=== PATIENT | female | born 1995 | race Caucasian/White ===

== ENCOUNTER 2018-12-06 15:35 | Emergency (ER) | payer SELFPAY ==
[~2018-12-06] VITALS: Ht 162.6 cm; Wt 68.0 kg
--- NOTE | 2018-12-06 16:16 | ED GU-Female ---
General Chief Complaint: - Urinary Stated Complaint: CRAMPING AND BLEEDING Source: patient Exam Limitations: no limitations History of Present Illness Date Seen by Provider: December 06, 2018 Time Seen by Provider: 16:08 Initial Comments 22-year-old LMP approximately 3 months ago presents with vaginal spotting and lower pelvic cramping today. No dysuria or frequency. She has not passed any clots. She states she's had a positive urine test but has had no reevaluation. She has unknown blood type. She does not recall getting RhoGAM with her last which was a miscarriage but states that she might have an is not aware. No other medical problems reported. Allergies and Home Medications Patient Home Medication List Home Medication List Reviewed: Yes Review of Systems Review of Systems Constitutional: no symptoms reported EENTM: no symptoms reported; No blurred vision, No double vision, No throat pain Respiratory: no symptoms reported; No short of breath, No stridor Cardiovascular: no symptoms reported; No edema, No palpitations, No syncope Gastrointestinal: see HPI; No diarrhea, No nausea Genitourinary: see HPI; denies burning, denies discharge, denies frequency, denies flank pain, denies incontinence; pain : No Musculoskeletal: no symptoms reported Skin: see HPI Psychiatric/Neurological: No Symptoms Reported, See HPI; Denies Paresthesia, Denies Seizure, Denies Tingling Endocrine: See HPI; Denies Excessive Sweating, Denies Flushing, Denies Increased Urine, Denies Other Hematologic/Lymphatic: Denies Other Past Zdsnlpd-Rzflay-Bsskaq Hx Past Med/Social Hx: Reviewed Nursing Past Med/Soc Hx Patient Social History Recent Foreign Travel: No Contact w/Someone Who Travel: No Physical Exam Vital Signs Vital Signs - First Documented 12/06/18 16:17 Temp 98.4 Pulse 91 Resp 20 B/P (MAP) 104/57 (73) Pulse Ox 99 O2 Delivery Room Air Capillary Refill : Height, Weight, BMI Height: '" Weight: lbs. oz. kg; BMI Method: General Appearance: WD/WN, no apparent distress HEENT: PERRL/EOMI, normal ENT inspection, TMs normal, pharynx normal Neck: non-tender, full range of motion, supple, normal inspection Cardiovascular: normal peripheral pulses, regular rate, rhythm, no edema, no gallop, no JVD, no murmur Respiratory: chest non-tender, lungs clear, normal breath sounds, no respiratory distress, no accessory muscle use, respiratory distress Gastrointestinal: normal bowel sounds, non tender, soft, no organomegaly, no pulsatile mass, tenderness (suprapubic region) Back: normal inspection, no CVA tenderness, no vertebral tenderness Extremities: normal range of motion, non-tender, normal inspection, no pedal edema 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, no motor/sensory deficits, alert, normal mood/affect, oriented x 3 Skin: normal color, warm/dry, pallor Lymphatic: no adenopathy Progress/Results/Core Measures Suspected Sepsis SIRS Temperature: Pulse: Respiratory Rate: Laboratory Tests 12/06/18 16:22: White Blood Count 11.8H Blood Pressure / Mean: Laboratory Tests 12/06/18 16:22: Platelet Count 255 Results/Orders Lab Results Laboratory Tests Test 12/06/18 15:58 12/06/18 16:22 Range/Units Urine Color YELLOW Urine Clarity CLEAR Urine pH 7.0 5-9 Urine Specific [place] 1.015 L 1.016-1.022 Urine Protein NEGATIVE NEGATIVE Urine Glucose (UA) NEGATIVE NEGATIVE Urine Ketones NEGATIVE NEGATIVE Urine Nitrite NEGATIVE NEGATIVE Urine Bilirubin NEGATIVE NEGATIVE Urine Urobilinogen 0.2 NORMAL MG/DL Urine Leukocyte Esterase NEGATIVE NEGATIVE Urine RBC (Auto) NEGATIVE NEGATIVE Urine RBC NONE /HPF Urine WBC NONE /HPF Urine Squamous Epithelial Cells 10-25 H /HPF Urine Crystals NONE /LPF Urine Bacteria NONE /HPF Urine Casts NONE /LPF Urine Mucus NEGATIVE /LPF Urine Culture Indicated NO Urine Test POSITIVE NEGATIVE White Blood Count 11.8 H 4.3-11.0 10^3/uL Red Blood Count 3.88 L 4.35-5.85 10^6/uL Hemoglobin 11.6 11.5-16.0 G/DL Hematocrit 34 L 35-52 % Mean Corpuscular Volume 86 80-99 FL Mean Corpuscular Hemoglobin 30 25-34 PG Mean Corpuscular Hemoglobin Concent 35 32-36 G/DL Red Cell Distribution Width 13.2 10.0-14.5 % Platelet Count 255 130-400 10^3/uL Mean Platelet Volume 10.1 7.4-10.4 FL Neutrophils (%) (Auto) 72 42-75 % Lymphocytes (%) (Auto) 21 12-44 % Monocytes (%) (Auto) 5 0-12 % Eosinophils (%) (Auto) 2 0-10 % Basophils (%) (Auto) 0 0-10 % Neutrophils # (Auto) 8.5 H 1.8-7.8 X 10^3 Lymphocytes # (Auto) 2.5 1.0-4.0 X 10^3 Monocytes # (Auto) 0.6 0.0-1.0 X 10^3 Eosinophils # (Auto) 0.2 0.0-0.3 10^3/uL Basophils # (Auto) 0.0 0.0-0.1 10^3/uL My Orders Orders - MICHAELA TELLEZ MD Cbc With Automated Diff (12/06/18 16:12) Comprehensive Metabolic Panel (12/06/18 16:12) Hcg,Qualitative Urine (12/06/18 16:12) Hcg,Quantitative (12/06/18 16:12) Ua Culture If Indicated (12/06/18 16:12) Abo Rh Type (12/06/18 16:12) Us Ob Single Fetus<14 [id number] (12/06/18 16:12) Vital Signs/I&O 12/06/18 16:17 Temp 98.4 Pulse 91 Resp 20 B/P (MAP) 104/57 (73) Pulse Ox 99 O2 Delivery Room Air Capillary Refill : Progress Note : Time: 17:38 Progress Note Unable to obtain ABO testing. Patient agrees to follow up with her primary care for results which will be sent to reference lab in the morning. She understands the importance of following through with this. 1740 discussed findings with her. She agrees to follow up with her OB tomorrow for Rh testing results. Recommended pelvic rest and close follow-up. Diagnostic Imaging Diagonstic Imaging: Ultrasound Comments NAME: DIANNE GONSALES [facility] REC#: [id number] PT STATUS: REG ER : 1995 PHYSICIAN: MICHAELA TELLEZ MD ADMIT DATE: 12/06/18/ER FS Draft Date of Exam:12/06/18 US OB SINGLE FETUS<14 [id number] PROCEDURE: US OB SINGLE FETUS <14 WKS. TECHNIQUE: Multiple real-time grayscale images were obtained over the gravid uterus in various projections. INDICATION: Cramping. FINDINGS: Obstetrical ultrasonography reveals iglesias intrauterine gestation with anterior placenta. There is no evidence of previa. There is cardiac activity present with a rate of 155 beats per minute. No anomalies identified however intracranial structures are not well visualized which may be due to incomplete bladder distention. biometry indicates gestational age of 16 weeks and 1 day. There has been no maternal adnexal region abnormality. IMPRESSION: 1. Estimated gestational age of 16 weeks and 6 days. Sonographic EDC is 05/17/2019. 2. Complete anatomic survey could be performed later in the second trimester. Otherwise, no acute abnormality is identified. Dictated on workstation # [id number] Dict: 12/06/18 1720 Trans: 12/06/18 1726 [id number] Interpreted by: POLI JEFFERS MD Electronically signed by: Departure Impression Primary Impression: Normal IUP (intrauterine ) on ultrasound Qualified Codes: Z34.92 - Encounter for supervision of normal , unspecified, second trimester Additional Impressions: Abdominal cramping Noncompliance Disposition: 01 HOME, SELF-CARE Condition: Improved Departure-Patient Inst. Decision time for Depature: 17:42 Referrals: NO,LOCAL PHYSICIAN (PCP) Primary Care Physician Call tomorrow to follow up with your OB doctor and determine what follow-up they think necessary. Patient Instructions: Bleeding With (DC) Add. Discharge Instructions: Be sure to follow up with your OB doctor tomorrow for the results of the pending lab tests here. Contact them immediately if additional problems should occur. All discharge instructions reviewed with patient and/or family. Voiced understanding. MICHAELA TELLEZ MD December 06, 2018 16:16
--- NOTE | 2018-12-06 16:30 | NUR ---
Report was given to DB Shook. Care was transferred.
[2018-12-06 16:33] LABS: BASOPHILS % (AUTO) 0 % (0-10); EOSINOPHILS % (AUTO) 2 % (0-10); HEMATOCRIT 34 % (35-52); HEMOGLOBIN 11.6 G/DL (11.5-16.0); LYMPHOCYTES % (AUTO) 21 % (12-44); MEAN CORPUSCULAR HEMOGLOBIN 30 PG (25-34); MEAN CORPUSCULAR HGB CONC 35 G/DL (32-36); MEAN CORPUSCULAR VOLUME 86 FL (80-99); MEAN PLATELET VOLUME 10.1 FL (7.4-10.4); MONOCYTES % (AUTO) 5 % (0-12); NEUTROPHILS % (AUTO) 72 % (42-75); PLATELET COUNT 255 10^3/uL (130-400); RED CELL DISTRIBUTION WIDTH 13.2 % (10.0-14.5); WHITE BLOOD COUNT 11.8 10^3/uL (4.3-11.0)
[2018-12-06 16:34] LABS: EOSINOPHILS # (AUTO) 0.2 10^3/uL (0.0-0.3); LYMPHOCYTES # (AUTO) 2.5 X 10^3 (1.0-4.0); MONOCYTES # (AUTO) 0.6 X 10^3 (0.0-1.0); NEUTROPHILS # (AUTO) 8.5 X 10^3 (1.8-7.8)
[2018-12-06 16:37] LABS: CLARITY,URINE CLEAR; COLOR,URINE YELLOW; PROTEIN,URINE NEGATIVE (NEGATIVE)
[2018-12-06 16:38] LABS: BILIRUBIN,URINE NEGATIVE (NEGATIVE); GLUCOSE, URINE (UA) NEGATIVE (NEGATIVE); KETONES,URINE NEGATIVE (NEGATIVE); LEUKOCYTE ESTERASE ,URINE NEGATIVE (NEGATIVE); NITRITE,URINE NEGATIVE (NEGATIVE); UROBILINOGEN,URINE 0.2 MG/DL (NORMAL)
--- NOTE | 2018-12-06 17:27 | Diagnostic Imaging Report ---
PROCEDURE: US OB SINGLE FETUS <14 WKS. TECHNIQUE: Multiple real-time grayscale images were obtained over the gravid uterus in various projections. INDICATION: Cramping. FINDINGS: Obstetrical ultrasonography reveals iglesias intrauterine gestation with anterior placenta. There is no evidence of previa. There is cardiac activity present with a rate of 155 beats per minute. No anomalies identified however intracranial structures are not well visualized which may be due to incomplete bladder distention. biometry indicates gestational age of 16 weeks and 1 day. There has been no maternal adnexal region abnormality. IMPRESSION: 1. Estimated gestational age of 16 weeks and 6 days. Sonographic EDC is 05/17/2019. 2. Complete anatomic survey could be performed later in the second trimester. Otherwise, no acute abnormality is identified. Dictated by: Dictated on workstation # [id number]
[2018-12-06 17:38] LABS: CARBON DIOXIDE 22 MMOL/L (21-32); CHLORIDE 99 MMOL/L (98-107); POTASSIUM 3.8 MMOL/L (3.6-5.0); SODIUM 135 MMOL/L (135-145)
[2018-12-06 17:39] LABS: ALANINE AMINOTRANSFERASE 19 U/L (0-55); ALBUMIN 3.6 GM/DL (3.2-4.5); ALKALINE PHOSPHATASE 57 U/L (40-136); BILIRUBIN,TOTAL 0.3 MG/DL (0.1-1.0); BUN/CREATININE RATIO 16; CALCIUM 9.1 MG/DL (8.5-10.1); CREATININE SERUM 0.38 MG/DL (0.60-1.30); GFR ESTIMATED > 60; GLUCOSE 109 MG/DL (70-105); TOTAL PROTEIN 6.2 GM/DL (6.4-8.2)
[2018-12-06 17:56] VITALS: BP 98/49
--- NOTE | 2018-12-06 17:56 | NUR ---
Pt discharged from ER at this time and was told to follow up with OB tomorrow and get her RH ABO result.
== END 2018-12-06 17:56 | disposition home or self-care (01) ==
LOC: ER FS 15:38
DX: O26.892 Other specified pregnancy related conditions, second trimester (principal); R10.2 Pelvic and perineal pain; Z91.19 Patient's noncompliance with other medical treatment and regimen; Z3A.16 16 weeks gestation of pregnancy
CPT/HCPCS: 36415; 76801; 80053; 81000; 84702; 84703; 85025; 86900; 86901

== ENCOUNTER 2019-02-13 11:22 | Emergency (ER) | payer MEDICAID, OTHER ==
[~2019-02-13] VITALS: Ht 162.6 cm; Wt 72.6 kg
--- OUTSIDE RECORDS SUMMARY | 2019-02-13 11:29 | XMS REPORT | Continuity of Care Document ---
Author Organization Unknown Address Unknown Allergies There is no data. Medications There is no data. Problems Date Dx Coded Attending Type Code Diagnosis Diagnosed By 12/06/2018 MICHAELA TELLEZ MD Ot O26.892 [facility] RELATED CONDITIONS, SECOND 12/06/2018 MICHAELA TELLEZ MD, Ot R10.2 PELVIC AND PERINEAL PAIN 12/06/2018 MICHAELA TELLEZ MD, Ot Z3A.16 16 WEEKS GESTATION OF 12/06/2018 MICHAELA TELLEZ MD, Ot Z91.19 PATIENT'S NONCOMPLIANCE W [facility] MEDICAL TR 12/08/2018 MICHAELA TELLEZ MD, Ot O26.892 [facility] RELATED CONDITIONS, SECOND 12/08/2018 MICHAELA TELLEZ MD, Ot R10.2 PELVIC AND PERINEAL PAIN 12/08/2018 MICHAELA TELLEZ MD, Ot Z3A.16 16 WEEKS GESTATION OF 12/08/2018 MICHAELA TELLEZ MD, Ot Z91.19 PATIENT'S NONCOMPLIANCE W [facility] MEDICAL TR 12/08/2018 MICHAELA TELLEZ MD, Ot O26.892 [facility] RELATED CONDITIONS, SECOND 12/08/2018 MICHAELA TELLEZ MD Ot R10.2 PELVIC AND PERINEAL PAIN 12/08/2018 MICHAELA TELLEZ MD, Ot Z3A.16 16 WEEKS GESTATION OF 12/08/2018 MICHAELA TELLEZ MD, Ot Z91.19 PATIENT'S NONCOMPLIANCE W [facility] MEDICAL TR Procedures There is no data. Results Test Result Range Urine beta human chorionic gonadotropin (hCG) measurement - 12/06/18 15:58 Urine beta human chorionic gonadotropin (hCG) measurement POSITIVE NEGATIVE Complete urinalysis with reflex to culture - 12/06/18 15:58 Urine color determination YELLOW NRG Urine clarity determination CLEAR NRG Urine pH measurement by test strip 7.0 5-9 Specific gravity of urine by test strip 1.015 1.016-1.022 Urine protein assay by test strip, semi-quantitative NEGATIVE NEGATIVE Urine glucose detection by automated test strip NEGATIVE NEGATIVE Erythrocytes detection in urine sediment by light microscopy NEGATIVE NEGATIVE Urine ketones detection by automated test strip NEGATIVE NEGATIVE Urine nitrite detection by test strip NEGATIVE NEGATIVE Urine total bilirubin detection by test strip NEGATIVE NEGATIVE Urine urobilinogen measurement by automated test strip (mass/volume) 0.2 mg/dL NORMAL Urine leukocyte esterase detection by dipstick NEGATIVE NEGATIVE Automated urine sediment erythrocyte count by microscopy (number/high power field) NONE NRG Automated urine sediment leukocyte count by microscopy (number/high power field) NONE NRG Bacteria detection in urine sediment by light microscopy NONE NRG Squamous epithelial cells detection in urine sediment by light microscopy 10-25 NRG Crystals detection in urine sediment by light microscopy NONE NRG Casts detection in urine sediment by light microscopy NONE NRG Mucus detection in urine sediment by light microscopy NEGATIVE NRG Complete urinalysis with reflex to culture NO NRG Complete blood count (CBC) with automated white blood cell (WBC) differential - 12/06/18 16:22 Blood leukocytes automated count (number/volume) 11.8 10*3/uL 4.3-11.0 Blood erythrocytes automated count (number/volume) 3.88 10*6/uL 4.35-5.85 Venous blood hemoglobin measurement (mass/volume) 11.6 g/dL 11.5-16.0 Blood hematocrit (volume fraction) 34 % 35-52 Automated erythrocyte mean corpuscular volume 86 [foz_us] 80-99 Automated erythrocyte mean corpuscular hemoglobin (mass per erythrocyte) 30 pg 25-34 Automated erythrocyte mean corpuscular hemoglobin concentration measurement (mass/volume) 35 g/dL 32-36 Automated erythrocyte distribution width ratio 13.2 % 10.0- 14.5 Automated blood platelet count (count/volume) 255 10*3/uL 130-400 Automated blood platelet mean volume measurement 10.1 [foz_us] 7.4-10.4 Automated blood neutrophils/100 leukocytes 72 % 42-75 Automated blood lymphocytes/100 leukocytes 21 % 12-44 Blood monocytes/100 leukocytes 5 % 0-12 Automated blood eosinophils/100 leukocytes 2 % 0-10 Automated blood basophils/100 leukocytes 0 % 0-10 Blood neutrophils automated count (number/volume) 8.5 10*3 1.8-7.8 Blood lymphocytes automated count (number/volume) 2.5 10*3 1.0-4.0 Blood monocytes automated count (number/volume) 0.6 10*3 0.0- 1.0 Automated eosinophil count 0.2 10*3/uL 0.0-0.3 Automated blood basophil count (count/volume) 0.0 10*3/uL 0.0-0.1 Comprehensive metabolic panel - 12/06/18 16:22 Serum or plasma sodium measurement (moles/volume) 135 mmol/L 135-145 Serum or plasma potassium measurement (moles/volume) 3.8 mmol/L 3.6-5.0 Serum or plasma chloride measurement (moles/volume) 99 mmol/L 98-107 Carbon dioxide 22 mmol/L 21-32 Serum or plasma anion gap determination (moles/volume) 14 mmol/L 5-14 Serum or plasma urea nitrogen measurement (mass/volume) 6 mg/dL 7-18 Serum or plasma creatinine measurement (mass/volume) 0.38 mg/dL 0.60-1.30 Serum or plasma urea nitrogen/creatinine mass ratio 16 NRG Serum or plasma creatinine measurement with calculation of estimated glomerular filtration rate > NRG Serum or plasma glucose measurement (mass/volume) 109 mg/dL 70-105 Serum or plasma calcium measurement (mass/volume) 9.1 mg/dL 8.5-10.1 Serum or plasma total bilirubin measurement (mass/volume) 0.3 mg/dL 0.1-1.0 Serum or plasma alkaline phosphatase measurement (enzymatic activity/volume) 57 U/L 40-136 Serum or plasma aspartate aminotransferase measurement (enzymatic activity/volume) 17 U/L 5-34 Serum or plasma alanine aminotransferase measurement (enzymatic activity/volume) 19 U/L 0-55 Serum or plasma protein measurement (mass/volume) 6.2 g/dL 6.4-8.2 Serum or plasma albumin measurement (mass/volume) 3.6 g/dL 3.2-4.5 CALCIUM CORRECTED 9.4 mg/dL 8.5-10.1 Serum or plasma choriogonadotropin measurement (units/volume) - 12/06/18 16:22 Serum or plasma choriogonadotropin measurement (units/volume) 8971 m[iU]/mL <5 ABO+Rh group - 12/06/18 16:22 ABO+Rh group AP NRG Encounters ACCT No. Visit Date/Time Discharge Status Pt. Type Provider Facility Loc./Unit Complaint [id number] 12/06/2018 15:38:00 12/06/2018 17:56:00 DIS Emergency GEOFF LARSEN, MICHAELA Osman [facility] ER FS CRAMPING AND BLEEDING
--- NOTE | 2019-02-13 11:42 | ED Neurological Problem ---
General Stated Complaint: EXTREMITY NUMBNESS; ANXIETY; NEAR SYNCOPE Source: patient, RN notes reviewed Exam Limitations: no limitations History of Present Illness Date Seen by Provider: Feb 13, 2019 Time Seen by Provider: 11:42 Initial Comments Patient presents c/ several complaints including dizziness, blurry vision, lower abdominal cramping, dyspnea, and extremity numbness x 3 days. Reports being . Her OB is in [place]. Currently denies any vaginal bleeding, although did have earlier in this . (+) PMH of anxiety. No known fever. (+) mild nausea. Timing/Duration: other (x 3 days) Severity: moderate Associated Symptoms: denies symptoms (x/ as noted.), numbness in legs/feet, paresthesia, vision changes Allergies and Home Medications Allergies Coded Allergies: No Known Drug Allergies (Unverified , 02/13/19) Home Medications Cefuroxime Axetil 250 Mg Tablet, 250 MG PO BID Prescribed by: DULCE PATTON on 02/13/19 1255 Patient Home Medication List Home Medication List Reviewed: Yes Review of Systems Review of Systems Constitutional: see HPI, dizziness Eyes: See HPI, Blurred Vision Respiratory: see HPI, short of breath : Yes Psychiatric/Neurological: See HPI, Numbness (extremities) All Other Systems Reviewed Negative Unless Noted: Yes (Negative excepted noted.) Past Wpfcxep-Yplwzx-Tmfcef Hx Patient Social History Type Used: Cigarettes 2nd Hand Smoke Exposure: Yes Recent Hopitalizations: No Seasonal Allergies Seasonal Allergies: No Past Medical History Surgeries: No Respiratory: No Cardiac: No Neurological: No Genitourinary: No Gastrointestinal: No Musculoskeletal: No Endocrine: No HEENT: No Cancer: No Psychosocial: No Integumentary: No Blood Disorders: No Physical Exam Vital Signs Vital Signs - First Documented 02/13/19 11:25 Temp 97.0 Pulse 93 Resp 20 B/P (MAP) 114/62 (79) Pulse Ox 99 O2 Delivery Room Air Capillary Refill : Height, Weight, BMI Height: 5'4.00" Weight: 150lbs. 0oz. 68.570604kq; BMI Method:Stated General Appearance: WD/WN, no apparent distress Respiratory: no respiratory distress Cardiovascular: regular rate, rhythm Gastrointestinal: No guarding, No rebound; tenderness (suprapubic (mild)) Neurologic/Psychiatric: no motor/sensory deficits, alert, oriented x 3 Skin: warm/dry; No rash Progress/Results/Core Measures Results/Orders Lab Results Laboratory Tests Test 02/13/19 11:25 02/13/19 11:49 02/13/19 11:55 Range/Units Lab Scanned Report Referred Lab Report [id number] White Blood Count 10.5 4.3-11.0 10^3/uL Red Blood Count 3.72 L 4.35-5.85 10^6/uL Hemoglobin 11.3 L 11.5-16.0 G/DL Hematocrit 33 L 35-52 % Mean Corpuscular Volume 88 80-99 FL Mean Corpuscular Hemoglobin 30 25-34 PG Mean Corpuscular Hemoglobin Concent 35 32-36 G/DL Red Cell Distribution Width 12.4 10.0-14.5 % Platelet Count 259 130-400 10^3/uL Mean Platelet Volume 9.7 7.4-10.4 FL Neutrophils (%) (Auto) 79 H 42-75 % Lymphocytes (%) (Auto) 14 12-44 % Monocytes (%) (Auto) 5 0-12 % Eosinophils (%) (Auto) 1 0-10 % Basophils (%) (Auto) 0 0-10 % Neutrophils # (Auto) 8.3 H 1.8-7.8 X 10^3 Lymphocytes # (Auto) 1.5 1.0-4.0 X 10^3 Monocytes # (Auto) 0.6 0.0-1.0 X 10^3 Eosinophils # (Auto) 0.1 0.0-0.3 10^3/uL Basophils # (Auto) 0.0 0.0-0.1 10^3/uL Sodium Level 136 135-145 MMOL/L Potassium Level 3.9 3.6-5.0 MMOL/L Chloride Level 101 98-107 MMOL/L Carbon Dioxide Level 20 L 21-32 MMOL/L Anion Gap 15 H 5-14 MMOL/L Blood Urea Nitrogen 7 7-18 MG/DL Creatinine 0.38 L 0.60-1.30 MG/DL Estimat Glomerular Filtration Rate > 60 BUN/Creatinine Ratio 18 Glucose Level 86 70-105 MG/DL Calcium Level 8.7 8.5-10.1 MG/DL Corrected Calcium 8.9 8.5-10.1 MG/DL Magnesium Level 1.7 L 1.8-2.4 MG/DL Total Bilirubin 0.3 0.1-1.0 MG/DL Aspartate Amino Transf (AST/SGOT) 19 5-34 U/L Alanine Aminotransferase (ALT/SGPT) 23 0-55 U/L Alkaline Phosphatase 92 40-136 U/L Total Protein 6.4 6.4-8.2 GM/DL Albumin 3.8 3.2-4.5 GM/DL Urine Color YELLOW Urine Clarity SLIGHTLY CLOUDY Urine pH 7.0 5-9 Urine Specific [place] 1.020 1.016-1.022 Urine Protein NEGATIVE NEGATIVE Urine Glucose (UA) NEGATIVE NEGATIVE Urine Ketones 1+ H NEGATIVE Urine Nitrite NEGATIVE NEGATIVE Urine Bilirubin NEGATIVE NEGATIVE Urine Urobilinogen NORMAL NORMAL MG/DL Urine Leukocyte Esterase 1+ H NEGATIVE Urine RBC (Auto) NEGATIVE NEGATIVE Urine RBC NONE /HPF Urine WBC 5-10 H /HPF Urine Squamous Epithelial Cells 25-50 H /HPF Urine Crystals PRESENT H /LPF Urine Amorphous Sediment FEW FARHANA PHOSPHATE H /LPF Urine Bacteria FEW H /HPF Urine Casts NONE /LPF Urine Mucus NEGATIVE /LPF Urine Culture Indicated YES Urine Opiates Screen NEGATIVE NEGATIVE Urine Oxycodone Screen NEGATIVE NEGATIVE Urine Methadone Screen NEGATIVE NEGATIVE Urine Propoxyphene Screen NEGATIVE NEGATIVE Urine Barbiturates Screen NEGATIVE NEGATIVE Ur Tricyclic Antidepressants Screen NEGATIVE NEGATIVE Urine Phencyclidine Screen NEGATIVE NEGATIVE Urine Amphetamines Screen NEGATIVE NEGATIVE Urine Methamphetamines Screen NEGATIVE NEGATIVE Urine Benzodiazepines Screen NEGATIVE NEGATIVE Urine Cocaine Screen NEGATIVE NEGATIVE Urine Cannabinoids Screen POSITIVE H NEGATIVE Micro Results Microbiology 02/13/19 Urine Culture - Final, Complete 3 or more isolates My Orders Orders - DULCE PATTON DO Ed Iv/Invasive Line Start (02/13/19 11:42) Orthostatic Vital Signs (Adult (02/13/19 11:42) Cbc With Automated Diff (02/13/19 11:42) Comprehensive Metabolic Panel (02/13/19 11:42) Drug Screen Stat (Urine) (02/13/19 11:42) Magnesium (02/13/19 11:42) Ua Culture If Indicated (02/13/19 11:42) Urine Culture (02/13/19 11:55) Ns Iv 1000 Ml (Sodium Chloride 0.9%) (02/13/19 12:36) Magnesium Oxide Tablet (Mag Ox Tablet) (02/13/19 13:00) Ns Iv 1000 Ml (Sodium Chloride 0.9%) (02/13/19 13:00) Vital Signs/I&O 02/13/19 02/13/19 02/13/19 11:25 12:04 13:50 Temp 97.0 Pulse 93 86 Resp 20 18 B/P (MAP) 114/62 (79) 99/59 (72) 94/59 (71) 95/58 (70) 106/59 (75) Pulse Ox 99 100 O2 Delivery Room Air Room Air Departure Impression Primary Impression: UTI (urinary tract infection) during Additional Impressions: Hypomagnesemia Ketonuria Disposition: HOME, SELF-CARE Condition: Improved Departure-Patient Inst. Decision time for Depature: 12:49 Referrals: NO,LOCAL PHYSICIAN (PCP/Family) Primary Care Physician Patient Instructions: Nutrition Before and During , Urinary Tract Infe ction, Adult (DC), Low Magnesium Level (DC) Add. Discharge Instructions: NEED TO EAT SMALL FREQUENT MEALS. NEED TO DRINK MORE WATER. KEEP YOUR APPOINTMENT WITH YOUR OB CURRENTLY SCHEDULED FOR THIS COMING THURSDAY. MIGHT BENEFIT FROM ADDING SOME DAILY MAGNESIUM WHICH IS AVAILABLE OTC. Scripts Cefuroxime Axetil (Cefuroxime) 250 Mg Tablet 250 MG PO BID for UTI for 10 Days, #20 TAB 0 Refills Prov: DULCE PATTON DO 02/13/19 DULCE PATTON DO Feb 13, 2019 11:42
[2019-02-13 11:55] LABS: BASOPHILS % (AUTO) 0 % (0-10); EOSINOPHILS # (AUTO) 0.1 10^3/uL (0.0-0.3); EOSINOPHILS % (AUTO) 1 % (0-10); HEMATOCRIT 33 % (35-52); HEMOGLOBIN 11.3 G/DL (11.5-16.0); LYMPHOCYTES # (AUTO) 1.5 X 10^3 (1.0-4.0); LYMPHOCYTES % (AUTO) 14 % (12-44); MEAN CORPUSCULAR HEMOGLOBIN 30 PG (25-34); MEAN CORPUSCULAR HGB CONC 35 G/DL (32-36); MEAN CORPUSCULAR VOLUME 88 FL (80-99); MEAN PLATELET VOLUME 9.7 FL (7.4-10.4); MONOCYTES # (AUTO) 0.6 X 10^3 (0.0-1.0); MONOCYTES % (AUTO) 5 % (0-12); NEUTROPHILS # (AUTO) 8.3 X 10^3 (1.8-7.8); NEUTROPHILS % (AUTO) 79 % (42-75); PLATELET COUNT 259 10^3/uL (130-400); RED CELL DISTRIBUTION WIDTH 12.4 % (10.0-14.5); WHITE BLOOD COUNT 10.5 10^3/uL (4.3-11.0)
[2019-02-13 12:04] VITALS: BP_SYST 106; BP_SYST 95; BP_SYST 99; BP_DIAS 58; BP_DIAS 59
[2019-02-13 12:13] LABS: AMPHETAMINE SCREEN, URINE NEGATIVE (NEGATIVE); BARBITURATE SCREEN URINE NEGATIVE (NEGATIVE); BENZODIAZEPINES SCREEN URINE NEGATIVE (NEGATIVE); CANNABINOID SCREEN, URINE POSITIVE (NEGATIVE); COCAINE SCREEN URINE NEGATIVE (NEGATIVE); METHADONE STAT NEGATIVE (NEGATIVE); METHAMPHETAMINE SCREEN URINE S NEGATIVE (NEGATIVE); OPIATE SCREEN URINE NEGATIVE (NEGATIVE); OXYCODONE STAT NEGATIVE (NEGATIVE); PROPOXYPHENE STAT NEGATIVE (NEGATIVE); TRICYCLIC ANTIDEPRESSANTS SCRE NEGATIVE (NEGATIVE)
[2019-02-13 12:21] LABS: CLARITY,URINE SLIGHTLY CLOUDY; COLOR,URINE YELLOW
[2019-02-13 12:22] LABS: AMORPHOUS SEDIMENT,UR FEW AMOR PHOSPHATE /LPF; BACTERIA,URINE FEW /HPF; BILIRUBIN,URINE NEGATIVE (NEGATIVE); GLUCOSE, URINE (UA) NEGATIVE (NEGATIVE); KETONES,URINE 1+ (NEGATIVE); LEUKOCYTE ESTERASE ,URINE 1+ (NEGATIVE); NITRITE,URINE NEGATIVE (NEGATIVE); PROTEIN,URINE NEGATIVE (NEGATIVE); SQUAMOUS EPITHELIAL CELL,UR 25-50 /HPF; UROBILINOGEN,URINE NORMAL (NORMAL)
[2019-02-13 12:24] LABS: ALANINE AMINOTRANSFERASE 23 U/L (0-55); ALBUMIN 3.8 GM/DL (3.2-4.5); ALKALINE PHOSPHATASE 92 U/L (40-136); BILIRUBIN,TOTAL 0.3 MG/DL (0.1-1.0); BUN/CREATININE RATIO 18; CALCIUM 8.7 MG/DL (8.5-10.1); CARBON DIOXIDE 20 MMOL/L (21-32); CHLORIDE 101 MMOL/L (98-107); CREATININE SERUM 0.38 MG/DL (0.60-1.30); GFR ESTIMATED > 60; GLUCOSE 86 MG/DL (70-105); MAGNESIUM 1.7 MG/DL (1.8-2.4); POTASSIUM 3.9 MMOL/L (3.6-5.0); SODIUM 136 MMOL/L (135-145); TOTAL PROTEIN 6.4 GM/DL (6.4-8.2)
[2019-02-13] MEDS ORDERED: NS IV 1000 ML 1,000 ML ONE (12:36)
[2019-02-13] MEDS ORDERED: CEFU250T80 PO (12:55)
[2019-02-13] MEDS ORDERED: NS IV 1000 ML 1,000 ML IV SCH (13:00)
[2019-02-13] MEDS ORDERED: MAGNESIUM OXIDE (MAG-OX)400 MG TAB PO ONE (13:00)
[2019-02-13 13:50] VITALS: BP 94/59
== END 2019-02-13 13:56 | disposition home or self-care (01) ==
LOC: EDUNIT# 11:22 → ER FS 11:25
DX: O23.42 Unspecified infection of urinary tract in pregnancy, second trimester (principal); O99.282 Endocrine, nutritional and metabolic diseases complicating pregnancy, second trimester; E83.42 Hypomagnesemia; O26.892 Other specified pregnancy related conditions, second trimester; R82.4 Acetonuria; O99.342 Other mental disorders complicating pregnancy, second trimester; F41.9 Anxiety disorder, unspecified; Z3A.16 16 weeks gestation of pregnancy
CPT/HCPCS: 36415; 80053; 80306; 81000; 83735; 85025; 87088; 96360